=== PATIENT | male | born 1975 | race Caucasian/White ===

== ENCOUNTER 2021-10-07 06:16 | Day surgery (SDC) | payer BC ==
[~2021-10-07 06:16] MED LIST: Lactated Ringers 1,000 ML IV SCH; Sodium Chloride 0.9% 10 ML Syringe FLUSH PRN
[2021-10-07] MEDS ORDERED: Sugammadex Sodium 200 MG/2 ML VIAL IV ONE (06:17)
[2021-10-07] MEDS ORDERED: Labetalol 100 MG/20 ML MDV IV ONE (06:17)
[2021-10-07] MEDS ORDERED: Rocuronium 100 MG/10 ML MDV IV ONE (06:17)
[2021-10-07] MEDS ORDERED: Dexmedetomidine 200 MCG/2 ML SDV IV ONE (06:17)
[2021-10-07] MEDS ORDERED: Succinylcholine 200 MG/10 ML MDV IV ONE (06:17)
[2021-10-07] MEDS ORDERED: Lactated Ringers 1,000 ML IV ONE (06:17)
[2021-10-07] MEDS ORDERED: Midazolam 1 MG/ML 2 ML SDV IV ONE (06:17)
[2021-10-07] MEDS ORDERED: Propofol 200 MG/20 ML SDV IV ONE (06:17)
[2021-10-07] MEDS ORDERED: fentaNYL 100 MCG/2 ML SDV IV ONE (06:17)
[2021-10-07] MEDS ORDERED: ceFAZolin 1 GM Vial IV ONE (06:17)
[2021-10-07] MEDS ORDERED: Ondansetron 4 MG/2 ML SDV IVPUSH ONE (06:17)
[2021-10-07] MEDS ORDERED: Bupivacaine 0.5% 30 ML SDV INJECT ONE (07:58)
[2021-10-07] MEDS ORDERED: Lidocaine 1% with EPINEPHrine 1:100,000 20 ML MDV INJECT ONE (07:58)
[2021-10-07 12:55] VITALS: BP 136/92; PULSE 82
== END 2021-10-07 10:00 | disposition home or self-care (01) ==
LOC: FB.SDS 06:16
PROVIDERS: ATTEND Surgery
DX: D17.0 Benign lipomatous neoplasm of skin and subcutaneous tissue of head, face and neck (principal); I10 Essential (primary) hypertension; F41.9 Anxiety disorder, unspecified; Z79.899 Other long term (current) drug therapy
CPT/HCPCS: 00300-QZ; 88304; J0330; J0690; J2250; J2405; J2704; J3010; J3490; J7120